=== PATIENT | male | born 1980 | race Caucasian/White ===

== ENCOUNTER 2017-09-16 18:48 | Emergency (ER) | payer MEDICAID ==
[~2017-09-16] VITALS: Ht 180.3 cm; Wt 78.5 kg
[2017-09-16 18:51] VITALS: BP 120/65
--- NOTE | 2017-09-16 18:56 | NUR ---
AMBULATES TO BED 6
--- NOTE | 2017-09-16 19:15 | NUR ---
PATIENT PRESENTS TO ED WITH POISION OAK ON RIGHT FOREARM AND RIGHT ABDOMEN X3 DAYS. PATIENT STATES HE WAS HIKING. PT DENIES N/V/D; SKIN IS PINK/WARM/DRY; AAOX4 WITH EVEN AND STEADY GAIT; LUNGS CLEAR BL; HR EVEN AND REGULAR; PT DENIES ANY FEVER, CP, SOB, OR COUGH AT THIS TIME; PATIENT STATES PAIN OF 0/10 AT THIS TIME; VSS; PATIENT POSITIONED FOR COMFORT; HOB ELEVATED; BEDRAILS UP X1; BED DOWN. ER MD MADE AWARE OF PT STATUS.
[2017-09-16] MEDS ORDERED: predniSONE 20 MG TAB PO ONE (19:50)
[2017-09-16 20:35] VITALS: BP 133/68
--- NOTE | 2017-09-16 20:35 | NUR ---
Patient discharged with v/s stable. Written and verbal after care instructions given and explained. Patient alert, oriented and verbalized understanding of instructions. Ambulatory with steady gait. All questions addressed prior to discharge. ID band removed. Patient advised to follow up with PMD. Rx of CALAMINE, PREDNISONE, BENADRYL, CLOBETASOL given. Patient educated on indication of medication including possible reaction and side effects. Opportunity to ask questions provided and answered.
== END 2017-09-16 20:35 | disposition home or self-care (01) ==
LOC: MED 18:48
DX: L25.5 Unspecified contact dermatitis due to plants, except food (principal); K21.9 Gastro-esophageal reflux disease without esophagitis
CPT/HCPCS: 99283; J7512; Q0163

== ENCOUNTER 2018-02-26 21:09 | Emergency (ER) | payer MEDICAID ==
[~2018-02-26] VITALS: Ht 175.3 cm; Wt 74.8 kg
[2018-02-26 21:19] VITALS: BP 132/64
--- NOTE | 2018-02-26 21:23 | NUR ---
ASSUMED CARE OF PT AT THIS TIME. C/O CHRONIC RASH X 2-3 MONTHS. AAOX4 WITH EVEN AND STEADY GAIT; PATIENT STATES PAIN OF 5/10; VSS; PATIENT POSITIONED FOR COMFORT; ER MD MADE AWARE OF PT STATUS. WILL CONTINUE TO MONITOR.
[2018-02-26 21:40] VITALS: BP 132/64
--- NOTE | 2018-02-26 21:40 | NUR ---
Patient discharged with v/s stable. Written and verbal after care instructions given and explained. Patient alert, oriented and verbalized understanding of instructions. Ambulatory with steady gait. All questions addressed prior to discharge. ID band removed. Patient advised to follow up with PMD. Rx of KEFLEX, BACTROBAN, ATARAX, AND PREDNISONE given. Patient educated on indication of medication including possible reaction and side effects. Opportunity to ask questions provided and answered.
== END 2018-02-26 21:40 | disposition home or self-care (01) ==
LOC: MED 21:09
DX: S80.862A Insect bite (nonvenomous), left lower leg, initial encounter (principal); L03.116 Cellulitis of left lower limb; T78.40XA Allergy, unspecified, initial encounter; W57.XXXA Bitten or stung by nonvenomous insect and other nonvenomous arthropods, initial encounter; Y93.89 Activity, other specified; Y92.89 Other specified places as the place of occurrence of the external cause; Y99.8 Other external cause status
CPT/HCPCS: 99283

== ENCOUNTER 2018-04-06 13:08 | Emergency (ER) | payer MEDICAID ==
[~2018-04-06] VITALS: Ht 180.3 cm; Wt 72.6 kg
[2018-04-06 13:20] VITALS: BP 123/70
--- NOTE | 2018-04-06 13:24 | NUR ---
VSS, PT AMBULATED TO LOBBY
--- NOTE | 2018-04-06 15:06 | NUR ---
PATIENT AMB. TO CHAIR E
--- NOTE | 2018-04-06 15:36 | NUR ---
KIAN NICHOLS ASSESSING PATIENT IN CHAIR E
[2018-04-06] MEDS ORDERED: ACETAMINOPHEN EXTRA STRENGTH 500 MG TAB PO ONE (15:45)
[2018-04-06] MEDS ORDERED: BACITRACIN OINT 500 UNITS/GM PKT TP ONE (15:45)
--- NOTE | 2018-04-06 15:45 | NUR ---
PATIENT LEFT W/O DISCHARGE PAPERS
--- NOTE | 2018-04-06 15:45 | NUR ---
PT LEFT WITHOUT DISCHARGE PAPERWORK AT THIS TIME
--- NOTE | 2018-04-06 15:45 | NUR ---
PATIENT NOT MEDICATED.PATIENT LEFT. KIAN NICHOLS AWARE
== END 2018-04-06 15:45 | disposition home or self-care (01) ==
LOC: MED 13:08
DX: L97.519 Non-pressure chronic ulcer of other part of right foot with unspecified severity (principal); B35.3 Tinea pedis; K21.9 Gastro-esophageal reflux disease without esophagitis; F17.210 Nicotine dependence, cigarettes, uncomplicated
CPT/HCPCS: 99283